=== PATIENT | male | born 1995 ===

== ENCOUNTER 2020-04-20 14:03 | Outpatient (CLI) | payer OTHER ==
[~2020-04-20] VITALS: Ht 182.9 cm; Wt 128.8 kg
[2020-04-20 14:22] VITALS: BP 146/108
--- NOTE | 2020-04-22 18:15 | Consultation ---
DATE OF CONSULTATION: 04/20/2020 GASTROLOGY CONSULTATION CHIEF COMPLAINT: Chronic diarrhea. HISTORY OF PRESENT ILLNESS: This is a 24-year-old male with chronic diarrhea that is going on for a while. He apparently had a stool study done, which has been negative for C diff, for cryptosporidium, for Giardia. He also has taken some Imodium over the counter with minimum improvement, so the patient was referred for colonoscopy. PAST MEDICAL HISTORY: History of chronic diarrhea. PAST SURGICAL HISTORY: None. MEDICATIONS: Please see medication reconciliation list. FAMILY HISTORY: No family history of GI malignancies. SOCIAL HISTORY: The patient denies any alcohol, but he smokes cigarettes. Denies any IV drug abuse. ALLERGIES: No known drug allergies. REVIEW OF SYSTEMS: Positive for GERD, diarrhea, and sometimes rectal bleeding. PHYSICAL EXAMINATION: VITAL SIGNS: Temperature 97.6, blood pressure is 146/100, pulse is 108, respirations 20. HEENT: Normocephalic and atraumatic. Sclerae are anicteric. NECK: Supple. No evidence of obvious lymphadenopathy. CARDIOVASCULAR: Regular rhythm. Plus S1, S2. LUNGS: Clear to auscultation bilaterally. ABDOMEN: Positive bowel sounds. Soft and nontender. No rebound. No guarding. No peritoneal sign. EXTREMITIES: No cyanosis. No clubbing. No edema. ASSESSMENT AND PLAN: This is a 24-year-old male with chronic diarrhea, not responding to the change in his diet, although including lactose-free diet or wheat-free diet, not responding to Imodium. The patient will need a colonoscopy for evaluation of causes of chronic diarrhea. Also was given prescription for Lomotil until colonoscopy is done. Doc Baldwin M.D. DR: BARRETT JOB#: [id number] CC:
== END 2020-04-20 16:03 | disposition home or self-care (01) ==
LOC: PAN 14:03
DX: K62.5 Hemorrhage of anus and rectum (principal)
CPT/HCPCS: G0463

== ENCOUNTER 2020-07-29 13:00 | Outpatient (CLI) | payer OTHER | END 2020-07-29 15:00 | disposition home or self-care (01) | LOC: PAN 13:00 | DX: R10.9 Unspecified abdominal pain (principal) | CPT/HCPCS: 99212 ==